=== PATIENT | female | born 2000 | race Caucasian/White ===

== ENCOUNTER 2023-10-20 21:29 | Emergency (ER) | payer OTHER ==
[~2023-10-20] VITALS: Ht 154.9 cm; Wt 83.9 kg
[~2023-10-20 21:29] MED LIST: VIGAMOX3 ML OD
[2023-10-20 21:45] VITALS: PULSE 77; RESP 18; TEMP 98.7
[2023-10-20] MEDS ORDERED: IOPAMIDOL 370 MG/ML 100 ML INFUS..BTL INJ ONE (23:06)
[2023-10-21] MEDS: ONDANSETRON HCL INJ 2MG/ML 2ML 2 MG/ML VIAL IV STA (00:13)
[2023-10-21] MEDS: SODIUM CHLORIDE 0.9% 1000ML 1,000 ML IV STA (00:13)
[2023-10-21] MEDS: KETOROLAC TROMETHAMINE 30 MG/ML VIAL IV STA ×2 (00:14→02:36)
[2023-10-21 02:25] VITALS: BP 146/89; PULSE 76; RESP 18; TEMP 98.7; O2SAT 100
[2023-10-21] MEDS ORDERED: NAPROSYN500 MG PO (02:30)
== END 2023-10-21 02:25 | disposition home or self-care (01) ==
LOC: FSED 21:39
DX: R10.11 Right upper quadrant pain (principal); M79.18 Myalgia, other site; F17.210 Nicotine dependence, cigarettes, uncomplicated
CPT/HCPCS: 74177; 80048; 80076; 81003; 81025; 85025; 96374; 96375; 99284; J1885; J2405; J7030; Q9967